=== PATIENT | female | born 1990 | race Asian ===

== ENCOUNTER 2022-06-30 12:17 | Emergency (ER) | payer MEDICAID, OTHER ==
[~2022-06-30] VITALS: Ht 167.6 cm; Wt 59.0 kg
[2022-06-30 12:28] VITALS: BP 121/84
[2022-06-30 12:41] LABS: BILIRUBIN,URINE 2+ (NEGATIVE); BLOOD, URINE 1+ (NEGATIVE); LEUKOCYTE ESTERASE ,URINE 1+ (NEGATIVE); NITRITE, URINE POSITIVE (NEGATIVE); UGLUCOSE 1+ (NEGATIVE)
--- NOTE | 2022-06-30 12:41 | NUR ---
AMB. TO BED 5 WIH NO DIFFICULTY. NO ACUTE DISTRESS
--- NOTE | 2022-06-30 12:53 | NUR ---
KERVIN AMBRIZ AT [facility].
--- NOTE | 2022-06-30 12:58 | NUR ---
32 Y/O F BIB SELF C/O DISCOMFORT AND BURNING DURING URINATION. PT STATES SHE TOOK OVER THE COUNTER MEDICATION WITH NO RELIEF. NKA OR PMH
--- NOTE | 2022-06-30 13:03 | NUR ---
The patient's care was reviewed and supervised by MAILE CARLSON RN.
[2022-06-30 13:46] LABS: APPEARANCE,URINE TURBID (CLEAR); COLOR,URINE BLOODY (YELLOW)
[2022-06-30 13:48] LABS: RBC,URINE >100 /HPF (0-5)
[2022-06-30] MEDS ORDERED: IBUP-2213 PO (13:50)
[2022-06-30] MEDS ORDERED: PYR100 PO (13:50)
[2022-06-30] MEDS ORDERED: CEPH-588 PO (13:50)
--- NOTE | 2022-06-30 14:07 | NUR ---
Patient discharged with v/s stable. Written and verbal after care instructions given and explained. Patient alert, oriented and verbalized understanding of instructions. Ambulatory with steady gait. All questions addressed prior to discharge. ID band removed. Patient advised to follow up with PMD. Rx of KEFLEX, PYRIDIUM given. Patient educated on indication of medication including possible reaction and side effects. Opportunity to ask questions provided and answered.
== END 2022-06-30 14:06 | disposition home or self-care (01) ==
LOC: MED 12:17
DX: N39.0 Urinary tract infection, site not specified (principal); R03.0 Elevated blood-pressure reading, without diagnosis of hypertension; Z79.1 Long term (current) use of non-steroidal anti-inflammatories (NSAID); Z79.899 Other long term (current) drug therapy; Z79.2 Long term (current) use of antibiotics
CPT/HCPCS: 81001; 81025; 87086; 99283

== ENCOUNTER 2022-08-24 06:15 | Emergency (ER) | payer OTHER ==
[~2022-08-24] VITALS: Ht 157.5 cm; Wt 53.1 kg
[~2022-08-24 06:15] MED LIST: CEPH-588 PO; IBUP-2213 PO; PYR100 PO
[2022-08-24 06:21] VITALS: BP 100/77
--- NOTE | 2022-08-24 06:24 | NUR ---
pt ambulatory to bed 04
--- NOTE | 2022-08-24 06:25 | NUR ---
PT. RESTING ON BED, A/Ox4. NOT IN DISTRESS. ON MONITOR
--- NOTE | 2022-08-24 06:50 | NUR ---
DR. OSEGUERA EXAMINING THE PATIENT
--- NOTE | 2022-08-24 07:17 | NUR ---
PT WHEELED TO CT SCAN BY LOADING MACHINE ADJUSTER
--- NOTE | 2022-08-24 07:22 | NUR ---
PT WHEELED BACK TO BED 4
--- NOTE | 2022-08-24 07:22 | NUR ---
Pt report given to YOLANDE. Transfer of care at this time.
[2022-08-24] MEDS ORDERED: CLON0.5T PO (08:30)
[2022-08-24 08:40] VITALS: BP 100/77
--- NOTE | 2022-08-24 08:40 | NUR ---
Patient discharged with v/s stable. Written and verbal after care instructions given and explained. Patient alert, oriented and verbalized understanding of instructions. Ambulatory with steady gait. All questions addressed prior to discharge. ID band removed. Patient advised to follow up with PMD. Rx of klonopin (sent) given. Patient educated on indication of medication including possible reaction and side effects. Opportunity to ask questions provided and answered.
== END 2022-08-24 08:40 | disposition home or self-care (01) ==
LOC: MED 06:15
DX: R43.2 Parageusia (principal); Z79.899 Other long term (current) drug therapy
CPT/HCPCS: 70450; 99284